=== PATIENT | female | born 1970 | race Caucasian/White ===

== ENCOUNTER 2023-05-09 14:29 | Day surgery (SDC) | payer BC ==
[2023-05-09] MEDS ORDERED: BUPIVACAINE 0.5% VIAL IJ ONE (14:30)
[2023-05-09] MEDS ORDERED: XYLOCAINE-MPF 1% 5ML SDV IJ ONE (14:30)
[2023-05-09] MEDS ORDERED: Depo-Medrol 40 MG/ML IM ONE (14:30)
[2023-05-09 16:59] LABS: HCG URINE TEST NEGATIVE (NEGATIVE)
--- NOTE | 2023-05-09 19:26 | XRAY ---
Indication: Left knee injection. Intraoperative fluoroscopy provided for 9 seconds. Single digital spot image submitted for interpretation demonstrates needle tip projecting over left femur intercondylar notch. Small amount of contrast injected for needle tip placement. Correlate with intraoperative findings/report.
--- NOTE | 2023-05-10 08:59 | XRAY ---
9 seconds of fluoroscopy was used in surgery for a left intra-articular knee injection.
== END 2023-05-09 17:28 | disposition home or self-care (01) ==
LOC: SDC-PAIN 14:29
PROVIDERS: ATTEND Psychiatry & Neurology Pain Medicine
DX: M17.12 Unilateral primary osteoarthritis, left knee (principal); E11.9 Type 2 diabetes mellitus without complications; Z79.899 Other long term (current) drug therapy
CPT/HCPCS: 20610; 73560; 77002; 81025; 82947; J1030; Q9966

== ENCOUNTER 2023-07-11 15:29 | Day surgery (SDC) | payer BC ==
[2023-07-11] MEDS ORDERED: Depo-Medrol 40 MG/ML IM ONE (15:30)
[2023-07-11] MEDS ORDERED: XYLOCAINE-MPF 1% 5ML SDV IJ ONE (15:30)
[2023-07-11] MEDS ORDERED: BUPIVACAINE 0.5% VIAL IJ ONE (15:30)
[2023-07-11 15:43] LABS: HCG URINE TEST NEGATIVE (NEGATIVE)
--- NOTE | 2023-07-11 18:59 | XRAY ---
Indication: Bilateral SI joint injection. Intraoperative fluoroscopy provided for 17 seconds. 4 digital spot images submitted for interpretation demonstrates posterior needle tips projecting over the left and right SI joint. Correlate with intraoperative findings/report.
--- NOTE | 2023-07-12 10:56 | XRAY ---
17 seconds of fluoroscopy was used in surgery for a bilateral sacroiliac joint injection.
== END 2023-07-11 17:21 | disposition home or self-care (01) ==
LOC: SDC-PAIN 15:29
PROVIDERS: ATTEND Psychiatry & Neurology Pain Medicine
DX: M46.1 Sacroiliitis, not elsewhere classified (principal); E11.9 Type 2 diabetes mellitus without complications
CPT/HCPCS: 27096; 72202; 77002; 81025; 82947; J1030; Q9966; G0260